=== PATIENT | female | born 1995 | race Caucasian/White ===

== ENCOUNTER 2018-06-06 09:23 | Emergency (ER) | payer OTHER ==
[~2018-06-06] VITALS: Ht 182.9 cm; Wt 83.9 kg
== END 2018-06-06 13:13 | disposition home or self-care (01) ==
LOC: ER 09:23
DX: R10.13 Epigastric pain (principal)

== ENCOUNTER 2018-06-22 08:00 | Outpatient (CLI) | payer OTHER | END 2018-06-22 08:02 | disposition home or self-care (01) | LOC: TOM 08:00 | DX: R10.31 Right lower quadrant pain (principal); R10.32 Left lower quadrant pain ==